=== PATIENT | female | born 2000 | race African-American/Black ===

== ENCOUNTER 2018-05-29 16:18 | Emergency (ER) | payer OTHER ==
[~2018-05-29] VITALS: Ht 149.9 cm; Wt 50.3 kg
[~2018-05-29 16:18] MED LIST: AMOXICILLIN500 M1 PO; BACTRIM,SEPT1 TABLET PO
[2018-05-29] MEDS ORDERED: BENADRYL50 MG PO (17:00)
[2018-05-29 17:08] VITALS: BP 106/63
== END 2018-05-29 17:09 | disposition home or self-care (01) ==
LOC: EME 16:18
DX: T78.40XA Allergy, unspecified, initial encounter (principal)
CPT/HCPCS: 99281; 99282